=== PATIENT | female | born 1990 | race Caucasian/White ===

== ENCOUNTER 2021-10-09 16:25 | Inpatient (IN) | payer OTHER ==
[~2021-10-09 16:25] MED LIST: Bupivacaine 0.25% HCL 30 ML VIAL ONE
[2021-10-09 19:10] VITALS: BMI 39.6
[2021-10-09] MEDS ORDERED: Lidocaine 1% (PF) 30 ML VIAL SC PRN (21:30)
[2021-10-09] MEDS ORDERED: Zolpidem Tartrate 5 MG TAB PO PRN (21:30)
[2021-10-09] MEDS ORDERED: Docusate 100 MG CAP PO PRN (21:30)
[2021-10-09] MEDS ORDERED: Acetaminophen 500 MG TAB PO PRN (21:30)
[2021-10-09] MEDS ORDERED: hydrALAZINE 20 MG/ML VIAL SLOW IVP PRN (21:30)
[2021-10-09] MEDS ORDERED: Misoprostol 200 MCG TAB PR PRN (21:30)
[2021-10-09] MEDS ORDERED: NS w/ Oxytocin 30 units 500 ML IV SCH ×2 (21:30→21:45)
[2021-10-09] MEDS ORDERED: Diphenoxylate HCl/Atropine Tablet PO PRN ×2 (21:30)
[2021-10-09] MEDS ORDERED: HYDROcodone/Acetaminophen 5/325 mg Tablet PO PRN ×2 (21:30)
[2021-10-09] MEDS ORDERED: Promethazine HCl 25 MG/ML VIAL IM PRN (21:30)
[2021-10-09] MEDS ORDERED: Butorphanol Tartrate 1 MG/ML VIAL SLOW IVP PRN (21:30)
[2021-10-09] MEDS ORDERED: Ibuprofen 800 MG TAB PO PRN (21:30)
[2021-10-09] MEDS ORDERED: Lactated Ringer's 1,000 ML IV SCH (21:30)
[2021-10-09 21:36] LABS: Hemoglobin 11.7 g/dL (12.0-15.5); Mean Corpuscular HGB CONC 33.9 g/dL (32.0-36.0); Mean Corpuscular Hemoglobin 29.6 pg (27.0-33.0); Mean Corpuscular Volume 87.3 fl (81.6-98.3); Mean Platelet Volume 11.1 fl (7.4-10.4); Platelet Count 188 10x3/uL (150-450); RBC Distribution Width 13.3 % (11.5-14.5); Red Blood Cell (RBC) Count 3.95 10x6/uL (3.90-5.03); White Blood Cell (WBC) Count 11.5 10x3/uL (3.5-10.5)
[2021-10-09 22:05] LABS: Syphilis Antibody Nonreactive (Nonreactive); Syphilis Antibody Index 0.04 S/CO (<1.00 Non-Reactive)
[2021-10-09 22:33] LABS: HBSAg Index 0.21 S/CO (0-0.99); HIV (1/2) Antibody/Antigen Non-Reactive (NonReactive); HIV 1/2 INDEX 0.09 S/CO (<1.00); Hep B Surf Ag Non-Reactive S/CO (NonReactive)
[2021-10-09] MEDS: Ondansetron PF 4 MG/2 ML Vial IVP PRN (23:21)
[2021-10-10] MEDS ORDERED: Fentanyl 2 mcg/Bup 0.1% Cadd 100 ML ONE (00:47)
[2021-10-10] MEDS ORDERED: Acetaminophen 325 MG TAB PO PRN (01:24)
[2021-10-10] MEDS ORDERED: diphenhydrAMINE 50 MG/ML VIAL IVP PRN (01:24)
[2021-10-10] MEDS ORDERED: Moisturizing Cream (Eucerin) 113 GM JAR TOP PRN (01:24)
[2021-10-10] MEDS ORDERED: Naloxone HCl 0.4 mg/ml Vial IVP PRN ×2 (01:24)
[2021-10-10] MEDS ORDERED: ePHEDrine Sulfate 50 MG/10 ML VIAL SLOW IVP PRN (01:24)
[2021-10-10] MEDS ORDERED: Lactated Ringer's 500 ML IV PRN (01:24)
[2021-10-10] MEDS ORDERED: Ondansetron PF 4 MG/2 ML Vial IVP PRN ×2 (01:24→08:05)
[2021-10-10] MEDS ORDERED: Promethazine HCl 25 MG/ML VIAL IM PRN (01:24)
[2021-10-10] MEDS ORDERED: Communication Order-Pharmacy FS SCH (01:30)
[2021-10-10] MEDS ORDERED: Fentanyl 2 mcg/Bupivacaine 0.1% Cassette 100 ML EPIDURAL SCH (01:30)
[2021-10-10] MEDS: Ondansetron PF 4 MG/2 ML Vial IVP PRN (06:48)
[2021-10-10] MEDS ORDERED: Misoprostol 200 MCG TAB VAG PRN (08:05)
[2021-10-10] MEDS ORDERED: Milk Of Magnesia 30 ML UDCUP PO PRN (08:05)
[2021-10-10] MEDS ORDERED: Preparation H Ointment 28 GM TUBE PR PRN (08:05)
[2021-10-10] MEDS ORDERED: Lanolin Ointment 7 GM TUBE TOP PRN (08:05)
[2021-10-10] MEDS ORDERED: hydrALAZINE 20 MG/ML VIAL SLOW IVP PRN (08:05)
[2021-10-10] MEDS ORDERED: diphenhydrAMINE 25 MG CAP PO PRN (08:05)
[2021-10-10] MEDS ORDERED: Benzocaine-Menthol 82.5 ML CAN TOP PRN (08:05)
[2021-10-10] MEDS ORDERED: Bisacodyl 10 MG SUPP PR PRN (08:05)
[2021-10-10] MEDS ORDERED: NS w/ Oxytocin 30 units 500 ML IV SCH (08:15)
[2021-10-10] MEDS: Ibuprofen 800 MG TAB PO SCH ×2 (13:13→21:28)
[2021-10-10] MEDS: Docusate 100 MG CAP PO SCH ×2 (13:13→21:28)
[2021-10-10] MEDS: Prenatal Vitamin 1 TAB PO SCH (13:13)
[2021-10-10] MEDS ORDERED: HYDROcodone/Acetaminophen 5/325 mg Tablet PO PRN ×2 (18:26)
[2021-10-10] MEDS ORDERED: Zolpidem Tartrate 5 MG TAB PO PRN (18:26)
[2021-10-10] MEDS: Ferrous Sulfate 325 MG TAB PO SCH (18:32)
[2021-10-11] MEDS: Ibuprofen 800 MG TAB PO SCH ×3 (06:01→22:13)
[2021-10-11] MEDS: Ferrous Sulfate 325 MG TAB PO SCH ×2 (07:46→16:27)
[2021-10-11] MEDS: Docusate 100 MG CAP PO SCH ×2 (08:58→22:14)
[2021-10-11] MEDS: Prenatal Vitamin 1 TAB PO SCH (08:58)
[2021-10-12] MEDS: Ibuprofen 800 MG TAB PO SCH ×2 (05:20→13:56)
[2021-10-12] MEDS: Ferrous Sulfate 325 MG TAB PO SCH (07:30)
[2021-10-12 08:00] VITALS: BP 107/59; TEMP 98.6
[2021-10-12] MEDS: Prenatal Vitamin 1 TAB PO SCH (09:06)
[2021-10-12] MEDS: Docusate 100 MG CAP PO SCH (09:06)
[2021-10-13] MEDS ORDERED: Boostrix 0.5 ML (Tdap) VIAL (>/=7 yrs of age) IM ONE (08:05)
== END 2021-10-12 14:30 | disposition home or self-care (01) | DRG 807 ==
LOC: CSHLD 16:25 → CSHPED 10-10 11:00
PROVIDERS: ADMIT Obstetrics & Gynecology; ATTEND Obstetrics & Gynecology
PROC: 10907ZC Drainage of Amniotic Fluid, Therapeutic from Products of Conception, Via Natural or Artificial Opening (ICD-10-PCS; 2021-10-09)
PROC: 10E0XZZ Delivery of Products of Conception, External Approach (ICD-10-PCS; principal; 2021-10-10)
PROC: 0HQ9XZZ Repair Perineum Skin, External Approach (ICD-10-PCS; 2021-10-10)
PROC: 0UQMXZZ Repair Vulva, External Approach (ICD-10-PCS; 2021-10-10)
DX: O42.02 Full-term premature rupture of membranes, onset of labor within 24 hours of rupture (principal); Z37.0 Single live birth; Z3A.39 39 weeks gestation of pregnancy; Z20.822 Contact with and (suspected) exposure to COVID-19; Z90.89 Acquired absence of other organs; Z79.899 Other long term (current) drug therapy; O70.0 First degree perineal laceration during delivery; O71.82 Other specified trauma to perineum and vulva
CPT/HCPCS: 51702; 85027; 86780; 86850; 86900; 86901; 87340; 87389; 99285; J0595; J2405; J2590; S0020